=== PATIENT | male | born 1985 | race Caucasian/White ===

== ENCOUNTER 2017-08-10 18:23 | Emergency (ER) | payer OTHER ==
[2017-08-10 18:52] VITALS: BP 127/81; PULSE 67; RESP 18; TEMP 98.5
--- NOTE | 2017-08-10 19:15 | ED ---
Abdominal Pain HPI - General Chief Complaint: Abdominal Pain Stated Complaint: abd pain Time Seen by Provider: 08/10/17 18:56 Source: patient, RN notes reviewed, old records reviewed Mode of arrival: ambulatory Limitations: no limitations - History of Present Illness Initial Comments: this patient is a 32-year-old male chief complaint of an abnormal sensation over his umbilical region. He reports he was pressing on his abdomen yesterday and noticed there seemed to be a small hole there nares umbilicus. Patient states he has no pain associated with it. No vomiting. No fevers or chills or any other symptoms. He reports he had no heavy lifting or any recently he thinks he may caused to have her hernia. - Related Data Home Medications Medication Instructions Recorded Confirmed No Known Home Medications [No 08/10/17 08/10/17 Known Home Medications] Allergies Allergy/AdvReac Type Severity Reaction Status Date / Time No Known Allergies Allergy Verified 08/10/17 19:04 Review of Systems ROS Statement: Those systems with pertinent positive or pertinent negative responses have been documented in the HPI. ROS Other: All systems not noted in ROS Statement are negative. Past Medical History Past Medical History: No Reported History History of Any Multi-Drug Resistant Organisms: None Reported Past Surgical History: No Surgical Hx Reported Past Psychological History: No Psychological Hx Reported Smoking Status: Never smoker Past Alcohol Use History: None Reported Past Drug Use History: None Reported General Exam - General Exam Comments Initial Comments: this is a 32-year-old male. Alert and oriented. No acute distress. Limitations: no limitations General appearance: alert, in no apparent distress Head exam: Present: atraumatic, normocephalic, normal inspection Eye exam: Present: normal appearance, PERRL, EOMI. Absent: scleral icterus, conjunctival injection, periorbital swelling ENT exam: Present: normal exam, mucous membranes moist Neck exam: Present: normal inspection. Absent: tenderness, meningismus, lymphadenopathy Respiratory exam: Present: normal lung sounds bilaterally. Absent: respiratory distress, wheezes, rales, rhonchi, stridor Cardiovascular Exam: Present: regular rate, normal rhythm, normal heart sounds. Absent: systolic murmur, diastolic murmur, rubs, gallop, clicks GI/Abdominal exam: Present: soft, normal bowel sounds, hernia (small 1-2 cm reducible umbilical hernia.). Absent: distended, tenderness, guarding, rebound , rigid Extremities exam: Present: normal inspection, full ROM, normal capillary refill. Absent: tenderness, pedal edema, joint swelling, calf tenderness Back exam: Present: normal inspection Course Vital Signs 08/10/17 18:48 Temperature 98.5 F Pulse Rate 67 Respiratory 18 Rate Blood Pressure 127/81 O2 Sat by Pulse 99 Oximetry Medical Decision Making - Medical Decision Making 32-year-old male since raised from chief complaint of abnormal sensation over his umbilicus. He feels something protruding out. Patient has evidence of a small 1-2 cm umbilical hernia. Discussed that he is relatively thin patient very unlikely for any concerns for incarceration. There is no hernia is reducible at this time. I discussed she can follow-up with surgeon. No need for further lab work or evaluation. He agrees to this. Patient will follow-up with surgeon but advised that he can wait unless he has pain or other issues with this at this time. Disposition Clinical Impression: Umbilical hernia Disposition: HOME SELF-CARE Condition: Good Instructions: Umbilical Hernia (ED) Additional Instructions: Patient has follow-up with primary care provider. Return to emergency department if any alarming signs or symptoms occur. Is patient prescribed a controlled substance at d/c from ED?: No If prescribed controlled substance>3 days was MAPS reviewed?: No When asked, does pt state using other controlled substances?: No Referrals: None,Stated [Primary Care Provider] - 1-2 days Amparo Nathan MD [STAFF PHYSICIAN] - 1-2 days Arnoldo Huddleston DO [Doctor of Osteopathic Medicine] - 1-2 days Xuan Sy MD [STAFF PHYSICIAN] - 1-2 days Time of Disposition: 19:13
== END 2017-08-10 19:26 | disposition home or self-care (01) ==
LOC: EC 18:23
DX: K42.9 Umbilical hernia without obstruction or gangrene (principal)
CPT/HCPCS: 99284

== ENCOUNTER 2017-12-17 21:25 | Emergency (ER) | payer OTHER ==
[2017-12-17 21:58] VITALS: TEMP 98.8
--- NOTE | 2017-12-17 22:50 | ED ---
Abdominal Pain HPI - General Chief Complaint: Abdominal Pain Stated Complaint: abdominal pain Time Seen by Provider: 12/17/17 22:04 Source: patient Mode of arrival: ambulatory Limitations: no limitations - History of Present Illness Initial Comments: Stefan is a 32-year-old malesignificant past medical history who presents to the ER for reevaluation of 1 month of persistent abdominal pain decreased appetite, nausea, intermittent vomiting and weight loss. Patient reports that he was seen approximately one month ago for similar symptoms. He was advised that he had a small ventral hernia but no other pathology. He reports that since that time he had persistent abdominal pain. He reports the pain is epigastric in nature associated with occasional episodes of nausea, one episode of nonbloody nonbilious emesis yesterday. Patient reports that he is unable to tolerate any food intake without developing abdominal pain. He reports these lost 30 pounds over the past month. This prompted him to come back to the ER for reevaluation. The patient reports that his abdominal pain has been epigastric in nature, persistent for approximately one month. Worse with eating but persistent when he doesn't eat. Worse with palpation. No relieving factors. The patient denies any history of gastric or GI pathology, denies being seen by GI in the past. Denies any family history of ulcerative colitis, Crohn's or irritable bowel disease. He denies any night sweats or other constitutional symptoms. - Related Data Home Medications Medication Instructions Recorded Confirmed Multivitamins, Thera [Multivitamin 1 tab PO DAILY 12/17/17 12/17/17 (formulary)] Previous Rx's Medication Instructions Recorded Pantoprazole Sodium [Protonix] 20 mg PO DAILY #30 tablet. 12/17/17 Sucralfate [Carafate] 1 gm PO ACHS #1 bottle 12/17/17 Allergies Allergy/AdvReac Type Severity Reaction Status Date / Time No Known Allergies Allergy Verified 12/17/17 23:08 Review of Systems ROS Statement: Those systems with pertinent positive or pertinent negative responses have been documented in the HPI. ROS Other: All systems not noted in ROS Statement are negative. Past Medical History Past Medical History: No Reported History History of Any Multi-Drug Resistant Organisms: None Reported Past Surgical History: No Surgical Hx Reported Past Psychological History: No Psychological Hx Reported Smoking Status: Never smoker Past Alcohol Use History: None Reported Past Drug Use History: None Reported General Exam - General Exam Comments Initial Comments: GENERAL: Patient is well-developed and underweight. Patient is nontoxic and well- hydrated and is in no distress. HENT: Normocephalic, Atraumatic. Neck is soft and supple. No significant lymphadenopathy is noted. Oropharynx is clear. Moist mucous membranes. Neck has full range of motion without eliciting any pain. EYES: The sclera were anicteric and conjunctiva were pink and moist. Extraocular movements were intact and pupils were equal round and reactive to light. Eyelids were unremarkable. PULMONARY: Unlabored respirations. Good breath sounds bilaterally. No audible rales rhonchi or wheezing was noted. CARDIOVASCULAR: There is a regular rate and rhythm without any murmurs gallops or rubs. ABDOMEN: Scaphoid abdomen, mild tenderness to palpation in epigastrium, no hepatosplenomegaly, no pulsatile masses, no hernias SKIN: Skin is clear with no lesions or rashes and otherwise unremarkable. NEUROLOGIC: Patient is alert and oriented x3. Cranial nerves II through XII are grossly intact. Motor and sensory are also intact. Normal speech, volume and content. Symmetrical smile. MUSCULOSKELETAL: Normal extremities with adequate strength and full range of motion. No lower extremity swelling or edema. No calf tenderness. LYMPHATICS: No significant lymphadenopathy is noted PSYCHIATRIC: Normal psychiatric evaluation. Limitations: no limitations Limitations: no limitations Course Vital Signs 12/17/17 12/18/17 21:56 00:06 Temperature 98.8 F 98.8 F Pulse Rate 91 78 Respiratory 20 18 Rate Blood Pressure 119/84 108/71 O2 Sat by Pulse 100 97 Oximetry Medical Decision Making - Medical Decision Making The patient was seen and evaluated, history was obtained from the patient and review of medical record Date symptoms have been persistent for 1 month but he came to the ER today due to increasing anxiety regarding his symptoms As ago exam reveals an underweight male with no acute findings Labs and imaging were ordered Labs with mild leukocytosis no other significant abnormalities Liver profile, lipase and TSH all within normal limits KUB x-ray unremarkable Results were discussed with the patient and significant other at bedside who expressed relief, the need to follow up with gastroenterology was discussed with the patient and his at bedside. All questions pertaining to care were answered to the best of my ability, Return parameters were discussed patient was discharged home in stable condition. - Lab Data Result diagrams: 12/17/17 22:15 12/17/17 22:15 Lab Results 12/17/17 12/17/17 Range/Units 22:15 22:15 WBC 10.8 H (3.8-10.6) k/uL RBC 4.81 (4.30-5.90) m/uL Hgb 15.4 (13.0-17.5) gm/dL Hct 45.8 (39.0-53.0) % MCV 95.3 (80.0-100.0) fL MCH 31.9 (25.0-35.0) pg MCHC 33.5 (31.0-37.0) g/dL RDW 13.1 (11.5-15.5) % Plt Count 248 (150-450) k/uL Neutrophils % 72 % Lymphocytes % 18 % Monocytes % 6 % Eosinophils % 2 % Basophils % 0 % Neutrophils # 7.8 H (1.3-7.7) k/uL Lymphocytes # 2.0 (1.0-4.8) k/uL Monocytes # 0.7 (0-1.0) k/uL Eosinophils # 0.2 (0-0.7) k/uL Basophils # 0.0 (0-0.2) k/uL Sodium 138 (137-145) mmol/L Potassium 4.1 (3.5-5.1) mmol/L Chloride 102 (98-107) mmol/L Carbon Dioxide 26 (22-30) mmol/L Anion Gap 10 mmol/L BUN 18 (9-20) mg/dL Creatinine 0.91 (0.66-1.25) mg/dL Est GFR (CKD-EPI)AfAm >90 (>60 ml/min/1.73 sqM) Est GFR (CKD-EPI)NonAf >90 (>60 ml/min/1.73 sqM) Glucose 92 (74-99) mg/dL Calcium 9.7 (8.4-10.2) mg/dL Total Bilirubin 0.5 (0.2-1.3) mg/dL AST 27 (17-59) U/L ALT 30 (21-72) U/L Alkaline Phosphatase 65 (38-126) U/L Total Protein 7.1 (6.3-8.2) g/dL Albumin 4.4 (3.5-5.0) g/dL Lipase 82 (23-300) U/L TSH 1.140 (0.465-4.680) mIU/L Disposition Clinical Impression: Abdominal pain, Weight loss Disposition: HOME SELF-CARE Instructions: Abdominal Pain (ED) Prescriptions: Pantoprazole Sodium [Protonix] 20 mg PO DAILY #30 tablet. Sucralfate [Carafate] 1 gm PO ACHS #1 bottle Is patient prescribed a controlled substance at d/c from ED?: No Referrals: None,Stated [Primary Care Provider] - 1-[address] [facility] [NON-STAFF] - 1-2 days Yina Chen MD [REFERRING] - 1-2 days Thais Subramanian MD [STAFF PHYSICIAN] - 1-2 days Time of Disposition: 23:57
--- NOTE | 2017-12-17 22:52 | XR ---
EXAMINATION TYPE: XR KUB DATE OF EXAM: 12/17/2017 COMPARISON: NONE HISTORY: Abdominal pain TECHNIQUE: 2 views upright FINDINGS: Bowel gas pattern is normal. There is no sign of intestinal obstruction or pneumoperitoneum . Fecal pattern is normal. There are phleboliths in the pelvis. There are no pathologic calcification s over the kidneys. IMPRESSION: Nonacute abdomen.
[2017-12-17 22:53] LABS: Basophils % (A) 0 %; Eosinophils # (A) 0.2 k/uL (0-0.7); Eosinophils % (A) 2 %; HCT 45.8 % (39.0-53.0); HGB 15.4 gm/dL (13.0-17.5); Lymphocytes % (A) 18 %; MCH 31.9 pg (25.0-35.0); MCHC 33.5 g/dL (31.0-37.0); MCV 95.3 fL (80.0-100.0); Mean Platelet Volume 7.4; Monocytes # (A) 0.7 k/uL (0-1.0); Monocytes % (A) 6 %; Neutrophils # (A) 7.8 k/uL (1.3-7.7); Neutrophils % (A) 72 %; Platelet Count 248 k/uL (150-450); RBC 4.81 m/uL (4.30-5.90); RDW 13.1 % (11.5-15.5); WBC 10.8 k/uL (3.8-10.6)
[2017-12-17 23:02] LABS: ALT 30 U/L (21-72); AST 27 U/L (17-59); Albumin 4.4 g/dL (3.5-5.0); Alkaline Phosphatase 65 U/L (38-126); Anion Gap 10 mmol/L; Blood Urea Nitrogen 18 mg/dL (9-20); Calcium 9.7 mg/dL (8.4-10.2); Carbon Dioxide 26 mmol/L (22-30); Chloride 102 mmol/L (98-107); Glucose 92 mg/dL (74-99); Lipase 82 U/L (23-300); Potassium 4.1 mmol/L (3.5-5.1); Sodium 138 mmol/L (137-145); Total Bilirubin 0.5 mg/dL (0.2-1.3); Total Protein 7.1 g/dL (6.3-8.2)
[2017-12-18 00:07] VITALS: BP 108/71; PULSE 78; RESP 18
== END 2017-12-18 00:06 | disposition home or self-care (01) ==
LOC: EC 21:25
DX: R10.13 Epigastric pain (principal); R11.2 Nausea with vomiting, unspecified; R63.4 Abnormal weight loss; Z68.1 Body mass index [BMI] 19.9 or less, adult; Z79.899 Other long term (current) drug therapy
CPT/HCPCS: 36415; 74018; 80053; 83690; 84443; 85025; 99284

== ENCOUNTER 2019-10-29 10:50 | Emergency (ER) | payer OTHER ==
[2019-10-29 10:58] VITALS: BP 123/78; PULSE 70; RESP 18; TEMP 98.2
--- NOTE | 2019-10-29 11:08 | ED ---
Upper Extremity HPI - General Chief Complaint: Extremity Injury, Upper Stated Complaint: lt wrist injury Time Seen by Provider: 10/29/19 10:59 Source: patient Mode of arrival: ambulatory Limitations: no limitations - History of Present Illness Initial Comments: Patient is a 34-year-old male presenting to the emergency department with a chief complaint of left wrist pain. Patient reports he has developed left wrist pain over the last few days. 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 Patient reports he has developed swelling and pain on the left wrist, particularly over the medial aspect of the left wrist. Patient reports the pain is exacerbated with pronation and supination of the left wrist. Patient denies any direct trauma to the region. Denies any numbness or tingling. Denies any history of carpal tunnel syndrome. Denies any erythema or ecchymosis. Patient states he recently started his new job and has been using his hands significantly more. - Related Data Home Medications Medication Instructions Recorded Confirmed No Known Home Medications 10/29/19 10/29/19 Allergies Allergy/AdvReac Type Severity Reaction Status Date / Time No Known Allergies Allergy Verified 10/29/19 11:56 Review of Systems ROS Statement: Those systems with pertinent positive or pertinent negative responses have been documented in the HPI. ROS Other: All systems not noted in ROS Statement are negative. Past Medical History Past Medical History: No Reported History History of Any Multi-Drug Resistant Organisms: None Reported Past Surgical History: No Surgical Hx Reported Past Psychological History: No Psychological Hx Reported Smoking Status: Current every day smoker Past Alcohol Use History: None Reported Past Drug Use History: Marijuana General Exam Limitations: no limitations General appearance: alert, in no apparent distress Head exam: Present: atraumatic, normocephalic, normal inspection Eye exam: Present: normal appearance, PERRL, EOMI Pupils: Present: normal accommodation ENT exam: Present: normal exam, normal oropharynx, mucous membranes moist Neck exam: Present: normal inspection, full ROM. Absent: tenderness Respiratory exam: Present: normal lung sounds bilaterally. Absent: respiratory distress, wheezes Cardiovascular Exam: Present: regular rate, normal rhythm, normal heart sounds Extremities exam: Present: full ROM, tenderness (Tenderness over the styloid region of the left wrist. No snuffbox tenderness.), normal capillary refill, other (+2 ulnar and radial pulse bilateral.). Absent: normal inspection (Mild swelling over the medial aspect of the left wrist. No ecchymosis or erythema. No signs of trauma.), pedal edema, joint swelling, calf tenderness Back exam: Present: normal inspection, full ROM. Absent: tenderness Neurological exam: Present: alert, oriented X3 Psychiatric exam: Present: normal affect, normal mood Skin exam: Present: warm, dry, intact, normal color Course Vital Signs 10/29/19 10:53 Temperature 98.2 F Pulse Rate 70 Respiratory 18 Rate Blood Pressure 123/78 O2 Sat by Pulse 100 Oximetry Medical Decision Making - Medical Decision Making Patient is a 34-year-old male presenting to the emergency department with chief complaint of left wrist pain. Exam patient has negative [place] and Gus test. There appears to be very mild swelling along the medial aspect of the left wrist. No trauma. X-ray is unremarkable. I suspect the tenderness and mild discomfort on the left wrist secondary to increased use of the left hand after he started new job. He is left-handed. Return parameters were thoroughly discussed with patient is an ascending agreeable. He was advised to alternate between Tylenol and Motrin pain control. He was advised to follow with the primary care physician. Case discussed physician. Disposition Clinical Impression: Left wrist pain Disposition: HOME SELF-CARE Condition: Stable Instructions (If sedation given, give patient instructions): Wrist Injury (ED) Additional Instructions: Follow-up with global marketing specialist. Return to emergency department if symptoms worsen. Is patient prescribed a controlled substance at d/c from ED?: No Referrals: None,Stated [Primary Care Provider] - 1-2 days Time of Disposition: 11:59
--- NOTE | 2019-10-29 11:34 | XR ---
EXAMINATION TYPE: XR wrist complete LT DATE OF EXAM: 10/29/2019 CLINICAL HISTORY: Pain. TECHNIQUE: Frontal, lateral, scaphoid, and oblique images of the left wrist are obtained. COMPARISON: None FINDINGS: There is no acute fracture/dislocation evident in the left wrist. The joint spaces in the left wrist appear within normal limits. The overlying soft tissue appears unremarkable. IMPRESSION: As above.
== END 2019-10-29 12:22 | disposition home or self-care (01) ==
LOC: EC 10:50
DX: M25.532 Pain in left wrist (principal); F17.200 Nicotine dependence, unspecified, uncomplicated
CPT/HCPCS: 99283